=== PATIENT | male | born 1985 | race Caucasian/White ===

== ENCOUNTER 2017-07-21 19:33 | Emergency (ER) | payer OTHER ==
[2017-07-21 19:38] VITALS: BP 132/86; TEMP 99; BMI 27.8
[2017-07-21] MEDS ORDERED: ZOFRAN 4 MG/2 ML IM STA (19:51)
--- NOTE | 2017-07-21 21:42 | ED.PDOC ---
General ED Provider: Dr. DAMIAN FARRELL Chief Complaint: Diarrhea Stated Complaint: Came for the nausea vomiting, and diarrhea,. Time Seen by Physician: 21:39 Mode of Arrival: Walk-In Information Source: Patient Primary Care Provider: CHICO BOYLE Nursing and Triage Documentation Reviewed and Agree: Yes Reviewed sepsis parameters & appropriate labs ordered?: Yes System Inflammatory Response Syndrome: Not Applicable Sepsis Protocol: For patient's 13 years and over: Temp is 96.8 and below OR 101 and greater Pulse >90 BPM Resp >20/minute Acutely Altered Mental Status Are patient's symptoms suggestive of a new infection, such as: -Pneumonia -Skin, Soft Tissue -Endocarditis -UTI -Bone, Joint Infection -Implantable Device -Acute Abdominal Infection -Wound Infection -Meningitis -Blood Stream Catheter Infection -Unknown GI Complaint Exam - Vomiting/Diarrhea Complaint/Exam Symptoms Are: Resolved Episodes of Vomiting over last 24 Hours: 1 Episodes of Diarrhea Over Last 24 Hours: 4 Initial Severity: Moderate Current Severity: Mild Character of Vomiting: Reports: Non-bilious Character of Diarrhea: Reports: Watery Aggravating: Reports: Food, Liquids Alleviating: Reports: None Associated Signs and Symptoms: Reports: Light-headedness. Denies: Dizziness, Melena, Hematemesis, Fever, Abdominal pain, Cramping Non-GI Risk Factors: Reports: None Surgical Obstruction Risk Factors: Reports: None Related Surgical History: Reports: None Abdominal Findings: Absent: Pulsatile mass, Abdominal distention, Unequal femoral pulses Differential Diagnoses: Viral Gastroenteritis, Bacterial Gastroenteritis Review of Systems - Review Of Systems Constitutional: Reports: Weakness Eyes: Reports: No symptoms Ears, Nose, Mouth, Throat: Reports: No symptoms Respiratory: Reports: No symptoms Cardiac: Reports: No symptoms GI: Reports: Diarrhea, Nausea, Vomiting : Reports: No symptoms Musculoskeletal: Reports: No symptoms Skin: Reports: No symptoms Neurological: Reports: No symptoms Endocrine: Reports: No symptoms Hematologic/Lymphatic: Reports: No symptoms All Other Systems: Reviewed and Negative Past Medical History - Past Medical History Previously Healthy: Yes Endocrine: Reports: None Cardiovascular: Reports: None Respiratory: Reports: None Hematological: Reports: None Gastrointestinal: Reports: None Genitourinary: Reports: None Neuro/Psych: Reports: None Musculoskeletal: Reports: None Cancer: Reports: None - Surgical History General Surgical History: Reports: None - Family History Family History: Reports: None - Social History Smoking Status: Never smoker Hx Substance Use: No Alcohol Screening: Occasionally - Immunizations Tetanus Shot up to Date: No Physical Exam - Physical Exam Appearance: Ill-appearing, Obese Eyes: JOHNNY, EOMI, Conjunctiva clear ENT: Ears normal, Nose normal, Oropharynx normal Respiratory: Airway patent, Breath sounds clear, Breath sounds equal, Respirations nonlabored Cardiovascular: RRR, Pulses normal, No rub, No murmur GI/: Soft, Nontender, No masses, Bowel sounds normal, No Organomegaly Musculoskeletal: Normal strength, ROM intact, No edema, No calf tenderness Skin: Warm, Dry, Normal color Neurological: Sensation intact, Motor intact, Reflexes intact, Cranial nerves intact, Alert, Oriented Psychiatric: Affect appropriate, Mood appropriate Re-Evaluation - Re-Evaluation Time of Re-Evaluation: 21:42 Status: Improved Critical Care Note - Critical Care Note Total Time (mins): 15 Course - Course Hematology/Chemistry: 07/21/17 20:02 07/21/17 20:02 Orders, Labs, Meds: Lab Review 07/21/17 07/21/17 07/21/17 20:02 20:02 20:19 WBC 16.91 H RBC 5.91 Hgb 18.4 H Hct 51.2 MCV 86.6 MCH 31.1 H MCHC 35.9 H RDW Coeff of Raven 11.9 Plt Count 239 Immature Gran % (Auto) 0.4 Neut % (Auto) 90.7 Lymph % (Auto) 2.1 L Dickson % (Auto) 5.9 Eos % (Auto) 0.7 Baso % (Auto) 0.2 Immature Gran # (Auto) 0.1 Neut # 15.4 H Lymph # 0.4 L Dickson # 1.0 Eos # 0.1 Baso # 0.0 Sodium 138 Potassium 4.4 Chloride 108 H Carbon Dioxide 21 Anion Gap 13.4 BUN 17 Creatinine 1.01 Estimated GFR (MDRD) 85.00 BUN/Creatinine Ratio 16.83 Glucose 126 H Calcium 9.9 Total Bilirubin 1.2 AST 26 ALT 37 Alkaline Phosphatase 110 Total Protein 7.7 Albumin 4.3 Globulin 3.4 Albumin/Globulin Ratio 1.26 Influenza A (Rapid) Negative by naat Influenza B (Rapid) Negative by naat Orders Category Date Time Status CBC W/ AUTO DIFF Stat LAB 07/21/17 20:02 Completed COMPREHENSIVE METABOLIC PANEL Stat LAB 07/21/17 20:02 Completed FLU A/B MOLECULAR Stat LAB 07/21/17 20:19 Completed MOLECULAR GROUP A STREP Stat LAB 07/21/17 20:19 Completed Ondansetron HCl/Pf [Zofran 4 mg/2 ml] MEDS 07/21/17 19:51 Discontinued 4 mg IM ONCE STA Medications Discontinued Medications Generic Name Dose Route Start Last Admin Trade Name Freq PRN Reason Stop Dose Admin Ondansetron HCl 4 mg 07/21/17 19:51 07/21/17 20:15 Zofran 4 Mg/2 Ml IM 07/21/17 19:52 4 mg ONCE STA Administration Vital Signs: Temp Pulse Resp BP Pulse Ox 07/21/17 19:34 99.0 F 131 H 20 132/86 98 Departure - Departure Time of Disposition: 21:42 Disposition: HOME SELF-CARE Discharge Problem: Gastroenteritis Instructions: Gastroenteritis (ED) Condition: Stable Pt referred to PMD for follow-up: Yes IPMP verified?: No Additional Instructions: SOFT DIET INCREASE HYDRATION F/U WITH PMD IN 3-4 DAYS Prescriptions: Loperamide HCl [Imodium] 2 mg PO LOOSE STOOL PRN PRN #14 tablet PRN Reason: Diarrhea Ondansetron [Zofran Odt] 4 mg PO Q8H #20 tab.rapdis Allergies/Adverse Reactions: Allergies No Known Allergies Allergy (Unverified 07/21/17 19:39) Home Medications: Ambulatory Orders Lisdexamfetamine Dimesylate [Vyvanse] 60 mg PO DAILY 07/21/17 Loperamide HCl [Imodium] 2 mg PO LOOSE STOOL PRN PRN #14 tablet 07/21/17 Ondansetron [Zofran Odt] 4 mg PO Q8H #20 tab.rapdis 07/21/17 Valsartan 40 mg PO DAILY 07/21/17 Disposition Discussed With: Patient, Family
== END 2017-07-21 21:56 | disposition home or self-care (01) ==
LOC: ED 19:33
DX: K52.9 Noninfective gastroenteritis and colitis, unspecified (principal)
CPT/HCPCS: 36415; 80053; 85025; 87502; 87651; 96372; 99283